=== PATIENT | female | born 1980 | race Caucasian/White ===

== ENCOUNTER 2025-02-24 22:23 | Emergency (ER) | payer OTHER, SELFPAY ==
[2025-02-24 22:30] VITALS: BP 143/75; PULSE 123; RESP 26; TEMP 36.3; O2SAT 95
--- OUTSIDE RECORDS SUMMARY | 2025-02-24 22:31 | XMS_ITS | Data Portability ---
Author Organization [facility] Mic LKelvinLArian, [facility] Address [address] [place] [phone] Assessment No assessment recorded. Plan of Treatment Reminders Order Date Submit Date Provider Last Modified By Organization Details Last Modified Time Details Appointments None record ed. Lab None record ed. Referral None record ed. Procedures None record ed. Surgeries None record ed. Imaging None record ed. Medication Orders None record ed. Patient TargetsNo targets recorded. Patient InstructionsNo instructions recorded. Reason for Referral None Reported. Problems Name Problem SNOMED Code Status Onset Date Resolution Date Notes Provider Name and Address Organization Details Recorded Time Smoker [id number] Active 008 Smoker; 04/11/20 08 2:25PM by Kim Donovan LPN, Office Visit; Promoted ; acuity set as *; Not Available [facility] 3 03:18:01 Problem Notes None recorded. Procedures Surgical History Date Name Laterality Status Provider Name and Address Organization Details Recorded Time Tubal Ligation completed Marti Coughlin [facility] LKelvinLArian 06/21/2024 15:28:36 Imaging Results None recorded. Procedure Notes None recorded. Medical Equipment None Reported. Allergies Allergen ID Allergen Name Allergen Category Reaction Reaction Severity Criticality Documentation Date Start Date Code Code System Note Provider Name and Address Organization Details Recorded Time 71837 Lamictal medicatio n Not available Not available Not available 06/21/2024 2 RxNorm Marti deleon [facility] L.LArian 4 15:27:55 Medications Name Sig Start Date Stop Date Status Note LastModified by Organization Details LastModified Time azithromy jesus 250 mg tablet 06/21 completed 2 tabs day 1, 1 tab days 2-5; Recorded 04/11/20 08 2:57PM by Melo Lyons MD, Office Visit; Refill Quantity : 0; Not Available Not Available Not Available citalopra m 20 mg tablet TAKE 1 TABLET BY MOUTH ONCE DAILY active Not Available Not Available No t Available albuterol 90 mcg/actua tion aerosol inhaler QID/PRN till cough complete ly gone 06/21 completed Recorded 04/11/20 08 2:57PM by Melo Lyons MD, Office Visit; Refill Quantity : 1; Aerosol Soln; Not Available Not Available Not Available topiramat e 100 mg tablet 06/21 completed Start 1/2 tab twice a day and slowly increase to a full tab bid; for migraine and bipolar. ; Recorded 04/04/20 08 10:34AM by Melo Lyons MD, Office Visit; Refill Quantity : 60; Tablet; Not Available Not Available Not Available aripipraz ole 10 mg tablet TAKE 1 TABLET BY MOUTH ONCE DAILY 06/21 completed Not Available Not Available Not Available Celexa active Not Available Not Availa ble Not Available Abilify active Not Available Not Avail able Not Available Vitals Date Recorded Body height Body mass index (BMI) Body weight Oxygen saturation Oxygen saturation in Arterial blood by Pulse oximetry Heart rate Provider Name and Address Organization Details Last Updated DateTime 4 160.02 cm 35.1 kg/m2 73823.2 9 g 99 % 99 % 101 /min Marti Coughlin [facility], [facility] 4 15:32:42 Social History None recorded. Functional Status None recorded. Mental Status None recorded. Family History Nothing Reported Notes:Luis Eduardo; Emphysema., Robi ly; Pos PPD reactor., Sister Flora; Asthma. Medical History No medical history recorded. Gynecological HistoryNo gynecological history recorded. Obstetrics History GPAL:G 0 P 0 0 0 0 Past Encounters Encounter ID Performer Location Encounter Start Date Encounter Closed Date Diagnosis/Indication Diagnosis SNOMED-CT Code Diagnosis ICD10 Code Diagnosis Note [id number] Jaime Kohli MD [facility] ([facility]) [address] [place] [phone] 06/21/2024 15:23:40 06/21/2024 15:37:23 Health Concerns Section Related Observation LastModified by Organization Detai ls LastModified Time None Recorded Concern Status LastModified by Organization Details LastModified Time None Recorded Advance Directives Directive None Recorded Payers Insurance Date Sequence Insurance Name Policy Number Policy Knox Covered Member ID Knox Member ID Guarantor Name 06/21/2024 1 LORELEI - JAVIERETTER FROM HOME [facility] ([facility]) [id number] Ramya Nazario [id number] Ramya Nazario Notes Date Note Type Note Provider Name and Address Organization Details Recorded Time 06/21/2024 text/html walk in patientpatient is is here for right shoulder pain that started 2-3 months ago and has been getting worse, patient said that she has no known injury to it. Patient got made at me and started swearing saying that this was a waste of her time and wanted her shoulder fixed today. I told patient that we would get a x ray today and have Dr Kohli look at it and go from there. Patient then got made and said that this was a waste of her time and left. SAQIB Weeks [facility], L.L.CKelvin 06/21/2024 15:36:39 OBGyn Episode No OBEpisode recorded.
--- NOTE | 2025-02-24 22:43 | ECG_ITS ---
[facility] Test Date: 2025-02-24 Pat Name: Ramya Nazario Department: Room: Gender: Female Facility Service Associate: : 1980 Requested By: Gabi Wall Order Number: [id number] Lisandra MD: Raphael East M.D. Measurements Intervals [place] Rate: 111 P: 78 UT: 152 QRS: 80 QRSD: 74 T: 69 QT: 321 QTc: 436 Interpretive Statements SINUS TACHYCARDIA LOW QRS VOLTAGE IN PRECORDIAL LEADS [QRS DEFLECTION < 1.0 mV IN CHEST LEADS] ABNORMAL RHYTHM ECG No previous ECG available for comparison Electronically Signed On 02-26-2025 09:58:01 CDT by Raphael East M.D. [id number]
[2025-02-24 22:47] VITALS: BP 134/83; PULSE 113; RESP 30; O2SAT 92
--- NOTE | 2025-02-24 22:54 | XRR_ITS ---
PROCEDURE INFORMATION: Exam: XR Chest Exam date and time: 02/24/2025 10:57 PM Age: 44 years old Clinical indication: Shortness of breath; C/O SOB; Additional info: Short of breath TECHNIQUE: Imaging protocol: Radiologic exam of the chest. Views: 1 view. COMPARISON: No relevant prior studies available. FINDINGS: Lungs: Mild bibasilar opacities may represent superimposition of breast shadows, atelectasis, inflammation, or infection, in the appropriate clinical setting. Clinical correlation is recommended. Slightly prominent prevascular hilar shadows. No consolidation. Pleural spaces: There is likely eventration of the right hemidiaphragm. No pleural effusion. No pneumothorax. Heart/Mediastinum: No cardiomegaly. Bones/joints: Minimal dextrocurvature of the thoracic spine. XR/XR chest 1V portable [id number] IMPRESSION: No acute radiographic findings in the chest.
[2025-02-24 23:04] LABS: Hematocrit 45.9 % (36-47); Hemoglobin 15.90 g/dL (11.27-16.99); Mean Corpuscular HGB Conc 34.6 g/dL (30-55); Mean Corpuscular Hemoglobin 32.4 pg (27-33); Mean Corpuscular Volume 93.5 fl (85-98); Nucleated Red Blood Cells % 0 %; Platelet Count 485 10^3/cmm (157-399); Red Blood Count 4.91 10^6/uL (3.85-5.65); White Blood Count 13.11 10^3/uL (3.29-11.43)
[2025-02-24 23:05] VITALS: BP 129/85; PULSE 108; O2SAT 91
[2025-02-24 23:14] LABS: Alanine Aminotransferase 44 U/L (0-33); Albumin Level 4.4 g/dL (3.5-5.2); Alkaline Phosphatase 94 U/L (35-105); Anion Gap 21.1 (5-19); Aspartate Amino Transferase 26 U/L (0-32); Blood Urea Nitrogen 11 mg/dL (6-20); Calcium 9.4 mg/dL (8.5-10.5); Carbon Dioxide 20 mmol/L (22-29); Chloride 101 mmol/L (98-107); Creatinine Clr Calc Pharmacy 110.7078; Globulin 3.7 g/dL (1.3-4.6); Glucose 102 mg/dL (65-115); Osmolality Calculated 286 mOsm/kg (285-295); Potassium 4.1 mmol/L (3.5-5.1); Sodium 138 mmol/L (136-145); Total Protein 8.1 g/dL (6.6-8.7)
--- NOTE | 2025-02-24 23:15 | W.ED.SOB ---
HPI - SOB/Dyspnea General: Chief Complaint: Shortness of Breath/Dyspnea Stated Complaint: SOB Time Seen by Provider: 02/24/25 22:53 History of Present Illness: HPI Narrative: Patient is 44-year-old female presents ED with 1 week of shortness of breath. Patient states she felt fine on February 15, and February 16 she woke up with shortness of breath, cough. Denies fevers or sick contact. She states that she feels palpitations after she coughs, otherwise does not notice that her heart rate is elevated. She states that her chest is tight, however denies chest discomfort. She has noted wheezes. She does smoke cigarettes. Associated symptoms: Reports extremity pain (prox/ant right arm), nausea and palpitations; Deny abdominal pain, chest pain, fever(s) or vomiting Related Data Previous Rx's ?Medication ?Instructions ?Recorded cyclobenzaprine 10 mg tablet 10 mg PO BID PRN muscle spasm #14 01/14/21 tabs albuterol sulfate 90 mcg/actuation 2 inh inhalation Q4H PRN shortness 02/25/25 aerosol inhaler (Ventolin HFA) of breath or wheezing #8.5 grams doxycycline hyclate 100 mg capsule 100 mg PO BID 10 days #20 caps 02/25/25 methylprednisolone 4 mg tablets in See Rx Instructions PO .COMPLEX 02/25/25 a dose pack (Medrol (Ryan)) #21 ea Allergies Allergy/AdvReac Type Severity Reaction Status Date / Time lamotrigine (From Lamictal) Allergy nausea/vomi Verified 02/24/25 22:35 ting oxcarbazepine (From Allergy Unknown Verified 02/24/25 22:35 Trileptal) Review of Systems General: Reports: 10 or more systems reviewed and unremarkable except in HPI and below Const: Reports: change in sleep pattern (sleep improved on right side, but will still note); Denies: fever(s) Eyes: Denies: change in vision ENMT: Denies: nasal congestion Card: Reports: palpitations; Denies: chest pain Resp: Reports: dyspnea and non-productive cough GI: Reports: nausea; Denies: abdominal pain or vomiting : Denies: flank pain or difficulty voiding Musc: Reports: extremity pain (prox/ant right arm); Denies: joint swelling or joint redness Skin/Breast: Denies: rash or sores Neuro: Denies: numbness in extremities or weakness in extremities Psych: Denies: anxiety, depression or irritability Michel/Lymph: Denies: easy bruising or enlarged lymph nodes PFSH ED PFSH: Social History Smoking and tobacco/nicotine status: current every day tobacco/nicotine user Alcohol intake: current Substance/Drug Use: never Physical Exam Narrative: EXAM NARRATIVE: Healthy appearing woman in no distress, No posturing of affected arm. Calm and competent. Provides a reliable history Const: COMMON NORMALS: no acute distress and healthy appearing NUTRITIONAL APPEARANCE: overweight Eye: COMMON NORMALS: Equal, round and reactive pupils present, EOMs intact bilaterally and conjunctivae normal CONJUNCTIVA: Yes conjunctivae normal PUPIL: Yes Equal, round and reactive pupils present Chest: COMMONS NORMALS: normal inspection of the chest and normal palpation of entire chest wall Breast/axilla inspection: Yes no chest deformity, asymmetry, normal contours, no nodules, masses, tenderness Resp: EFFORT & INSPECTION: No able to speak in complete sentences, Yes symmetric chest movement, Yes abnormal respiratory pattern, Yes tachypneic, Yes respiratory distress (mild) and No pursed lip breathing AUSCULTATION: wheezes expiratory wheezes, scattered wheezes and throughout Cardio: COMMON NORMALS: regular rate and regular rhythm RATE: regular rate RHYTHM: regular rhythm : COMMON NORMALS: Yes no CVA tenderness BLADDER/KIDNEY EXAM: Yes no CVA tenderness Back/Pelvis: COMMON NORMALS: no CVA tenderness and thoracic and lumbar spine normal to inspection Extremity: COMMON NORMALS: full ROM and no joint enlargement RIGHT UPPER EXTREMITY: Yes shoulder joint (full rotation/extension. limited abd w pain ant glenoid and prox hum) Right shoulder: Yes Right shoulder joint neurovascular exam (Normal. Flat Polisher maintained) Neuro: COMMON NORMALS: no focal motor deficits and no sensory deficits noted Psych: COMMON NORMALS: mental status grossly normal, normal affect and speech normal SPEECH: Yes normal speech MOOD & AFFECT: Yes euthymic mood INSIGHT: Good insight present (Psych) JUDGEMENT: Good judgement present (Psych) Course Vital Signs: Vital signs: Vital Signs Temperature 97.3 F L 02/24/25 22:30 Pulse Rate 99 02/25/25 00:52 Respiratory Rate 24 H 02/24/25 23:52 Blood Pressure 121/92 02/25/25 00:52 Pulse Oximetry 91 02/25/25 00:52 Oxygen Delivery Me thod Room Air 02/24/25 23:52 MDM - SOB/Dyspnea Medical Decision Making Patient is a 44-year-old female with history of asthma, with 1 week of shortness of breath, wheezing, palpitations, refractory cough. Suspect this is asthma exacerbation. Chest x-ray is fairly benign and appears to be a viral pattern. Given the amount of time, the diagnosis of asthma, continued smoking, will go forth and treat with antibiotics with Medrol Dosepak. Patient did receive aerosol treatment here, and Solu-Medrol. Albuterol inhaler be sent to pharmacy as well. Discussed with patient that she needs better management for asthma, and primary care. She has agreed to follow-up with primary care, and case management order has been placed Medical Records I reviewed the patient's medical records. Lab Data I reviewed the patient's lab results. 02/24/25 22:44 02/24/25 22:44 Labs/Radiology: Radiology Impressions Chest X-Ray 02/24/25 22:54 IMPRESSION: No acute radiographic findings in the chest. Laboratory Results WBC 13.11 10^3/uL (3.29-11.43) H 02/24/25 22:44 RBC 4.91 10^6/uL (3.85-5.65) 02/24/25 22:44 Hgb 15.90 g/dL (11.27-16.99) 02/24/25 22:44 Hct 45.9 % (36-47) 02/24/25 22:44 MCV 93.5 fl (85-98) 02/24/25 22:44 MCH 32.4 pg (27-33) 02/24/25 22:44 MCHC 34.6 g/dL (30-55) 02/24/25 22:44 RDW 13.8 % (12.1-15.1) 02/24/25 22:44 Plt Count 485 10^3/cmm (157-399) H 02/24/25 22:44 MPV 8.8 fL (7.4-10.4) 02/24/25 22:44 Neut % (Auto) 52.6 % 02/24/25 22:44 Lymph % (Auto) 38.7 % 02/24/25 22:44 Bulloch % (Auto) 5.2 % 02/24/25 22:44 Eos % (Auto) 2.6 % 02/24/25 22:44 Baso % (Auto) 0.4 % 02/24/25 22:44 Neut # (Auto) 6.90 10^3/uL (1.8-7.7) 02/24/25 22:44 Lymph # (Auto) 5.1 10^3/uL (0.8-4.8) H 02/24/25 22:44 Bulloch # (Auto) 0.7 10^3/uL (0.2-0.9) 02/24/25 22:44 Eos # (Auto) 0.3 10^3/uL (0.0-0.8) 02/24/25:44 Baso # (Auto) 0.1 10^3/uL (0.0-0.1) 02/24/25 22:44 Nucleated RBC % (auto) 0 % 02/24/25:44 Nucleated RBCs # 0.0 /100WBC 02/24/25 22:44 D-Dimer 0.44 ug/mLFEU (0-0.59) 02/24/25 22:44 Sodium 138 mmol/L (136-145) 02/24/25 22:44 Potassium 4.1 mmol/L (3.5-5.1) 02/24/25 22:44 Chloride 101 mmol/L (98-107) 02/24/25 22:44 Carbon Dioxide 20 mmol/L (22-29) L 02/24/25 22:44 Anion Gap 21.1 (5-19) H 02/24/25 22:44 BUN 11 mg/dL (6-20) 02/24/25 22:44 Creatinine 0.7 mg/dL (0.5-0.9) 02/24/25 22:44 GFR Calculation 90.1 mL/min (90-130) 02/24/25 22:44 Glucose 102 mg/dL (65-115) 02/24/25 22:44 Calculated Osmolality 286 mOsm/kg (285-295) 02/24/25 22:44 Calcium 9.4 mg/dL (8.5-10.5) 02/24/25 22:44 Total Bilirubin 0.4 mg/dL (0.15-1.2) 02/24/25 22:44 AST 26 U/L (0-32) 02/24/25 22:44 ALT 44 U/L (0-33) H 02/24/25 22:44 Alkaline Phosphatase 94 U/L (35-105) 02/24/25 22:44 Total Protein 8.1 g/dL (6.6-8.7) 02/24/25 22:44 Albumin 4.4 g/dL (3.5-5.2) 02/24/25 22:44 Globulin 3.7 g/dL (1.3-4.6) 02/24/25 22:44 All radiology interpretation(s) finalized by discharge Discharge Plan Discharge Patient Disposition: Home Clinical Impression: Asthma with exacerbation Qualifiers: Asthma severity: moderate Asthma persistence: persistent Qualified Code(s): J45.41 - Moderate persistent asthma with (acute) exacerbation Condition: Stable Prescriptions: New doxycycline hyclate 100 mg capsule 100 mg PO BID 10 Days Qty: 20 0RF methylprednisolone [Medrol (Ryan)] 4 mg tablets,dose pack See Rx Instructions .ROUTE .COMPLEX Qty: 21 0RF Rx Instructions: for 6 days albuterol sulfate [Ventolin HFA] 90 mcg/actuation HFA aerosol inhaler 2 inh inhalation Q4H PRN (Reason: shortness of breath or wheezing) Qty: 8.5 0RF No Action cyclobenzaprine 10 mg tablet 10 mg PO BID PRN (Reason: muscle spasm) Qty: 14 0RF Discharge Orders: Discharge ED (Routine); Ordered 02/25/25 Ordered By: Gabi Wall Discharge Diet: Usual diet Discharge Activity: Resume usual activity Patient Instructions: Patient Portal & Elma Instructions Activity Restrictions/Additional Instructions: No smoking. Take medication as prescribed. Your antibiotic has been sent to the pharmacy, take a probiotic x 2 or active culture yogurt daily to avoid infectious diarrhea Return to ED for worsening shortness of breath, chest pain, fever greater than 100.4 ?F Please call tomorrow to make an appointment follow-up with your primary care physician regarding today's visit and reevaluation. 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
[2025-02-24 23:44] VITALS: PULSE 109; RESP 22; O2SAT 93
[2025-02-24 23:52] VITALS: PULSE 110; RESP 24; O2SAT 94
[2025-02-25] VITALS: BP 124/69; PULSE 109; O2SAT 91
[2025-02-25] MEDS: methylPREDNISolone sod succ 125 mg/2 mL INJ 80 MG IVP
[2025-02-25 00:30] VITALS: BP 121/82; PULSE 101; O2SAT 90
[2025-02-25 00:52] VITALS: BP 121/92; PULSE 99; O2SAT 91
--- NOTE | 2025-02-28 08:39 | DCPLANNER ---
messaged wpfm for er f/u
== END 2025-02-25 00:53 | disposition home or self-care (01) ==
PROVIDERS: Emergency Provider Physician Assistant
DX: J45.41 Moderate persistent asthma with (acute) exacerbation (principal); Z72.0 Tobacco use
CPT/HCPCS: 71045; 80053; 85025; 85378; 93005; 94640; 96374; 99285; J2919; J7614; J7644; J9999

== ENCOUNTER → 2025-03-14 13:33 | Outpatient (BNVA) | payer OTHER, SELFPAY | PROVIDERS: Visit Provider Family Medicine | DX: Z13.6 Encounter for screening for cardiovascular disorders (principal); N92.0 Excessive and frequent menstruation with regular cycle; D50.9 Iron deficiency anemia, unspecified | CPT/HCPCS: 80053; 80061; 82728; 83550; 84443; 85025 ==

== ENCOUNTER → 2025-03-22 08:45 | Outpatient (BNVA) | payer OTHER, SELFPAY | PROVIDERS: PCP Family Medicine; Visit Provider Family Medicine | DX: N92.0 Excessive and frequent menstruation with regular cycle (principal); Z01.419 Encounter for gynecological examination (general) (routine) without abnormal findings | CPT/HCPCS: 85025; 87624 ==

== ENCOUNTER 2025-03-25 13:46 | Outpatient (CLI) | payer OTHER, SELFPAY ==
--- NOTE | 2025-03-25 14:00 | MM_ITS ---
WS: [id number] BILATERAL 3D TOMOSYNTHESIS DIGITAL SCREENING MAMMOGRAPHY WITH CAD CLINICAL INFORMATION: screening HISTORY: Screening mammogram. No current complaints. COMPARISON: Baseline TECHNIQUE: Bilateral CC and MLO views. FINDINGS: Scattered fibroglandular densities bilaterally. No suspicious focal mass, asymmetry, calcifications, or architectural distortion. No evidence of malignancy. MM/MM scr BI tomosynthesis [id number] IMPRESSION: DENSITY: There are scattered areas of fibroglandular density. BI-RADS: 1 - Negative. FOLLOW UP: 1 Year Follow-up Recommend return to annual screening mammography.
== END 2025-03-25 13:47 | disposition home or self-care (01) ==
LOC: RAD 13:49
PROVIDERS: PCP Family Medicine; Visit Provider Family Medicine
DX: Z12.31 Encounter for screening mammogram for malignant neoplasm of breast (principal); R92.323 Mammographic fibroglandular density, bilateral breasts
CPT/HCPCS: 77063; 77067

== ENCOUNTER 2025-04-04 07:53 | Outpatient (CLI) | payer OTHER, SELFPAY ==
--- NOTE | 2025-04-04 08:00 | US_ITS ---
WS: [id number] US transvaginal [id number] HISTORY: menorrhagia COMPARISON: None available. Uterus: 11.3 cm x 6.3 cm x 5.6 cm. Uterus is slightly enlarged and heterogeneous. Large areas of shadowing from the myometrium consistent with a fibroid uterus. The largest fibroid along the posterior myometrium measures 3.3 x 2.8 x 2.3 cm. There are additional areas of shadowing also suspicious for fibroids. Abnormal cervix. There is fluid along the cervical canal with a diffuse circumferential soft tissue mass with hypervascularity. Cervical mass measures 3.2 x 2.6 cm and extends over a length of 5.2 cm. Endometrium: Fluid distended endometrial canal. There are low-level echoes within the fluid along the endometrial canal consistent with debris and possible blood products. Fluid retention due to a high-grade cervical stenosis related to the cervical mass. Neither ovary is identified. Adnexa be obscured by GI tract content. No free fluid in the cul-de-sac. US/US transvaginal [id number] IMPRESSION: 1. 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 Cervical ne oplasm until proven otherwise. Recommend follow-up with [facility] surgery. 2. Fluid distended endometrium with complex debris. Obstructed endometrial can al due to the cervical mass resulting in cervical stenosis. There is also fluid along the cervical canal associated with the cervical mass. 3. Fibroid uterus.
== END 2025-04-04 07:54 | disposition home or self-care (01) ==
LOC: RAD 07:54
PROVIDERS: PCP Family Medicine; Visit Provider Family Medicine
DX: N92.1 Excessive and frequent menstruation with irregular cycle (principal); D25.9 Leiomyoma of uterus, unspecified; Q51.9 Congenital malformation of uterus and cervix, unspecified; N88.2 Stricture and stenosis of cervix uteri
CPT/HCPCS: 76830

== ENCOUNTER 2025-04-18 10:50 | Day surgery (SDC) | payer OTHER, SELFPAY ==
--- NOTE | 2025-04-17 22:37 | W.PM.OPSFHP ---
Same Day Surgery H&P Indication for Procedure/HPI DATE OF PROCEDURE: April 17, 2025 CHIEF COMPLAINT/INDICATIONFOR SURGICAL PROCEDURE: abnormal uterine bleeding; cervical mass on ultrasound PREOP DIAGNOSIS: abnormal uterine bleeding; cervical mass on ultrasound PLANNED PROCEDURE: Operation Date: 04/18/25 12:50 Proposed Procedures p Hysteroscopy w/ Endometrial Sampling 28525 [id number] 72179 N88.8 N93.9(Not Applicable) - Walter Garcia MD s Possible Endometrial Poylpectomy(Not Applicable) - Walter Garcia MD s Excision Tissue Cervix Conization of Cervix(Not Applicable) - Walter Garcia MD Medications/Allergies* Home Medications ?Medication ?Instructions ?Recorded ?Confirmed ?Type albuterol sulfate 2.5 mg/3 mL 2.5 mg inhalation Q4H PRN 03/14/25 04/17/25 History (0.083 %) solution for nebulization Shortness Of Breath Or Wheezing aripiprazole 10 mg tablet (Abilify) 10 mg PO DAILY 03/14/25 04/17/25 History citalopram 40 mg tablet (Celexa) 40 mg PO DAILY 03/14/25 04/17/25 History fluticasone furoate 200 1 inh inhalation DAILY 04/08/25 04/17/25 History mcg-vilanterol 25 mcg/dose inhalation powder Allergies/Adverse Reactions Allergy/AdvReac Type Severity Reaction Status Date / Time lamotrigine (From Lamictal) Allergy nausea/vomi Verified 04/08/25 15:44 ting oxcarbazepine (From Allergy Unknown Verified 04/08/25 15:44 Trileptal) Pertinent History/Comorbid Conditions* Medical History (Updated 04/04/25 @ 09:53 by Miriam Escobar DO) Asthma Surgical History (Updated 03/14/25 @ 07:28 by Miriam Escobar DO) History of tubal ligation Family History (Updated 03/14/25 @ 13:04 by Shani Joel LPN) Father Grandfather Grandmother Alcohol dependence Grandfather Liver disease Father Congestive heart failure (CHF) Grandmother Depression Mother Heart disease Grandfather Grandmother Hypothyroidism Grandmother Lung cancer Grandfather Lung disease Grandmother Father Stroke Grandfather Social History Smoking and tobacco/nicotine status: current every day tobacco/nicotine user Alcohol intake: current Substance/Drug Use: former Pertinent Exam Findings alert, oriented x 3, clear to auscultation bilaterally and regular rate & rhythm Recommendations Surgery/Procedure today Coding Level of Care Code Acute Code for Chg Michael
[2025-04-18] VITALS (10 sets, daily range): BP systolic 111–154; BP diastolic 68–96; PULSE 70–90; RESP 16; TEMP 36.3–36.6; O2SAT 97–100; BMI 37.4
[2025-04-18 11:39] LABS: OR HCG Qualitative Urine Negative (Negative)
--- NOTE | 2025-04-18 12:08 | W.PM.OPSUD ---
Surgery/Procedure H&P Update DATE OF PROCEDURE: April 18, 2025 DATE H&P PERFORMED: 04/18/25 H&P UPDATE INFORMATION: I have reviewed H&P completed within last 30 days, I have examined patient prior to procedure and No changes to prior documentation PREOP DIAGNOSIS: abnormal uterine bleeding; abnormal cervical mass PLANNED PROCEDURE: Operation Date: 04/18/25 12:50 Proposed Procedures p Hysteroscopy w/ Endometrial Sampling 28789 [id number] 55041 N88.8 N93.9(Not Applicable) - Walter Garcia MD s Possible Endometrial Poylpectomy(Not Applicable) - Walter Garcia MD s Excision Tissue Cervix Conization of Cervix(Not Applicable) - Walter Garcia MD
--- NOTE | 2025-04-18 12:15 | ANES.PREANE2 ---
Pre-Anesthetic Assessment Height/Weight: Height 1.63 m Weight 98.883 kg Temp Pulse Resp BP Pulse Ox O2 Del Method 97.3 F L 87 16 132/86 98 Room Air 04/18/25 11:35 04/18/25 11:35 04/18/25 11:35 04/18/25 11:35 04/18/25 11:35 04/18/25 11:35 Preop Diagnosis: abnormal uterine bleeding; abnormal cervical mass Operation Date: 04/18/25 12:50 Proposed Procedures p Hysteroscopy w/ Endometrial Sampling 60881 [id number] 97154 N88.8 N93.9(Not Applicable) - Walter Garcia MD s Possible Endometrial Poylpectomy(Not Applicable) - Walter Garcia MD s Excision Tissue Cervix Conization of Cervix(Not Applicable) - Walter Garcia MD Familial anesthetic complications: None Was Beta Rachel taken within 24 hours: N/A Was Clonidine taken within 24 hours: N/A Last intake: Intake Last Liquid Date 04/17/25 Last Liquid Time 23:55 Last Solid Date 04/17/25 Last Solid Time 21:00 Social Tobacco and No alcohol Exam alert, oriented x 3, clear to auscultation bilaterally and regular rate & rhythm Airway Mallampati: Class II Dentition: other (none) Pulmonary Asthma Anesthetic Plan ASA status: 3 Anesthesia: General Risk of > 500 ml blood loss (7ml/kg in children): No Medications/Allergies Home Medications ?Medication ?Instructions ?Recorded ?Confirmed ?Last Taken ?Type albuterol sulfate 90 mcg/actuation 2 inh inhalation Q4H PRN shortness 02/25/25 04/17/25 Unknown Rx aerosol inhaler (Ventolin HFA) of breath or wheezing #8.5 grams albuterol sulfate 2.5 mg/3 mL 2.5 mg inhalation Q4H PRN 03/14/25 04/17/25 Unknown History (0.083 %) solution for nebulization Shortness Of Breath Or Wheezing aripiprazole 10 mg tablet (Abilify) 10 mg PO DAILY 03/14/25 04/17/25 04/17/25 History citalopram 40 mg tablet (Celexa) 40 mg PO DAILY 03/14/25 04/17/25 04/17/25 History montelukast 10 mg tablet 10 mg PO DAILY #30 tabs 03/22/25 04/17/25 04/17/25 Rx (Singulair) fluticasone furoate 200 1 inh inhalation DAILY 04/08/25 04/17/25 04/17/25 History mcg-vilanterol 25 mcg/dose inhalation powder Allergies Allergy/AdvReac Type Severity Reaction Status Date / Time lamotrigine (From Lamictal) Allergy nausea/vomi Verified 04/08/25 15:44 ting oxcarbazepine (From Allergy Unknown Verified 04/08/25 15:44 Trileptal) Current Medications Generic Name Dose Route Start Last Admin Trade Name Freq PRN Reason Stop Dose Admin Sodium Chloride 1,000 mls @ 30 mls/hr 04/18/25 11:30 04/18/25 12:11 Sodium Chloride 0.9% IV 04/19/25 11:29 30 mls/hr .Q24H CLIFF Administration PFSH Anesthesia Medical History Asthma Surgical History History of tubal ligation Family History Grandfather Lung cancer Heart disease Stroke Alcohol dependence Grandmother Congestive heart failure (CHF) Hypothyroidism Heart disease Lung disease Father Liver disease Lung disease Mother Depression Social History Smoking and tobacco/nicotine status: current every day tobacco/nicotine user Alcohol intake: current Substance/Drug Use: former Female Reproductive History Date of last menstrual period: 04/17/25
[2025-04-18] MEDS: fentaNYL 50 mcg/mL INJ 2mL IVP (13:30)
--- NOTE | 2025-04-18 14:05 | PM.OP ---
Operative Report Date of procedure: April 18, 2025 Pre-op diagnosis: abnormal uterine bleeding cervical mass on pelvic sono Post-op diagnosis: same Post-op findings: uterus sounded to 8 cm Large amount of endometrial tissue Cervix enlarged, slightly irregular Procedure done: hysteroscopy Curettage of uterus Electrosurgical loop excision of the cervix Implants: none Specimens removed/disposition: endometrial and cervical tissue Surgeon: Walter Garcia MD Anesthesia: MAC Estimated blood loss (mL): 5 Complications: none Findings: see above Condition: stable Disposition: PACU Brief History: 44 y.o. with abnormal uterine bleeding and cervical mass on pelvic sono Procedure: Patient was taken to the operating room. Anesthesia was induced. Patient was placed in dorsolithotomy position, prepped and draped for hysteroscopy. A bivalve speculum was placed in the vagina. The anterior lip of the cervix was grasped with a sharp-toothed tenaculum. The cervix was serially dilated with Hegar dilators. A hysteroscope was placed into the endometrial cavity. The endometrial cavity was seen to have large amount of endometrial tissue. The hysteroscope was then removed. Endometrial curettage was done with a sharp curette. Endometrial tissue was sent to pathology. The cervix was then infiltrated at the cervicovaginal junction with 20 U of vasopressin to decrease bleeding. Electrosurgical loop excision of the cervix was done to a depth of approximately 1 cm. No bleeding was seen. Excellent hemostasis was noted. Monsel?s solution was applied to ensure hemostasis. All instruments were then removed. The patient was placed supine, awakened, and taken to the recovery room. Postoperative condition: stable EBL: 5 cc Complications: none Sponge and instrument counts were correct x two
[2025-04-18] MEDS: acetaminophen 1,000 MG/100 ML PIGGYBACK 400 MG IV (14:39)
--- NOTE | 2025-04-18 15:10 | ANE.PACU2 ---
Inpatient post-anesthesia follow up: Airway intact: Yes Vital signs: Temperature 97.9 F Pulse Rate 77 Respiratory Rate 16 Blood Pressure 115/69 Pulse Oximetry 98 Oxygen Delivery Me thod Room Air Oxygen Flow Rate 10 Fraction of Inspir ed Oxygen Hydration adequate: Yes Nausea and vomiting: No Pain level: 1 Mental status: Baseline
== END 2025-04-18 15:10 | disposition home or self-care (01) ==
PROVIDERS: PCP Family Medicine; Visit Provider Obstetrics & Gynecology
PROC: 0UJD8ZZ Inspection of Uterus and Cervix, Via Natural or Artificial Opening Endoscopic (ICD-10-PCS; CPT 58555; principal; 2025-04-18 12:40)
PROC: (CPT 58558; 2025-04-18 12:40)
DX: N93.9 Abnormal uterine and vaginal bleeding, unspecified (principal); C53.0 Malignant neoplasm of endocervix; J45.909 Unspecified asthma, uncomplicated
CPT/HCPCS: 58558; 81025; 88305; 88342; J0131; J2250; J3010; J3490; J7030